=== PATIENT | male | born 1965 | race Caucasian/White ===

== ENCOUNTER 2017-11-02 23:20 | Observation (INO) | payer BC ==
[~2017-11-02] VITALS: Ht 170.2 cm; Wt 82.4 kg
[~2017-11-02 23:20] MED LIST: Monopril PO; NOHOMEMEDS; Norvasc PO; TRILIPIX135 MG PO; Zocor PO
[2017-11-02 23:58] LABS: HEMATOCRIT 45.6 % (38.0-50.0); MCH 28.9 PG (29.0-34.0); MCHC 35.1 G/DL (30.0-36.0); MCV 82.3 FL (86-99); PLATELET COUNT 235 K/uL (156-360); RBC DIS.WIDTH-CV 12.5 % (11.8-14.6); RBC DIS.WIDTH-SD 37.3 % (39-53); RED BLOOD COUNT 5.54 M/uL (4.00-5.50); WHITE BLOOD COUNT 6.6 K/uL (4.1-10.2)
[2017-11-03 00:10] LABS: CHLORIDE 104 mEq/L (99-109); POTASSIUM 3.2 mEq/L (3.7-5.4); SODIUM 139 mEq/L (136-147)
[2017-11-03 00:11] LABS: GLUCOSE 181 mg/dL (70-99)
[2017-11-03 00:15] LABS: CREATININE 1.1 mg/dL (0.6-1.3); GFR ESTIMATE (CALCULATED) > 59 mL/min/ (58.99-99999)
[2017-11-03 00:16] LABS: UREA NITROGEN (BUN) 18 mg/dL (9-23)
[2017-11-03 00:19] LABS: TROP-I INTERPRETATION NEGATIVE; TROPONIN-I 0.04 ng/mL (0.0-0.30)
[2017-11-03] MEDS ORDERED: TIROSINT100 MCG PO (00:41)
[2017-11-03] MEDS ORDERED: GLYXAMBI 10 MG1 EACH PO (00:42)
[2017-11-03] MEDS ORDERED: GLUCOPHAGE1000 MG PO (00:42)
[2017-11-03] MEDS ORDERED: LISINOPRIL10 MG PO (00:42)
[2017-11-03] MEDS ORDERED: ASPIRIN81 M2 PO (00:43)
[2017-11-03] MEDS ORDERED: NORVASC10 MG PO (01:36)
[2017-11-03] MEDS ORDERED: FISH OIL 1,0001 EAC7 PO (01:37)
[2017-11-03 03:27] VITALS: BP 133/86
[2017-11-03 06:40] LABS: HEMATOCRIT 43.4 % (38.0-50.0); HEMOGLOBIN 14.8 G/DL (12.5-16.6); MCH 28.7 PG (29.0-34.0); MCHC 34.1 G/DL (30.0-36.0); MCV 84.1 FL (86-99); PLATELET COUNT 221 K/uL (156-360); RBC DIS.WIDTH-CV 12.6 % (11.8-14.6); RBC DIS.WIDTH-SD 38.5 % (39-53); RED BLOOD COUNT 5.16 M/uL (4.00-5.50)
[2017-11-03 06:54] VITALS: BP 135/77
[2017-11-03 06:59] LABS: TROP-I INTERPRETATION NEGATIVE; TROPONIN-I < 0.01 ng/mL (0.0-0.30)
[2017-11-03 07:17] LABS: ALBUMIN 4.3 G/DL (3.2-4.8); ALKALINE PHOSPHATASE 54 IU/L (3-129); ALT (GPT) 27 IU/L (3-49); AST (GOT) 15 IU/L (2-34); CHLORIDE 107 MEQ/L (99-109); GFR ESTIMATE (CALCULATED) > 59 mL/min/ (58.99-99999); GLUCOSE 147 mg/dL (70-99); POTASSIUM 3.9 MEQ/L (3.7-5.4); SODIUM 139 MEQ/L (136-147); TOTAL BILIRUBIN 0.4 MG/DL (0.0-1.0); TOTAL PROTEIN 6.6 G/DL (6.4-8.3); UREA NITROGEN (BUN) 22 mg/dL (9-23)
[2017-11-03 12:22] VITALS: BP 116/75
[2017-11-03 12:34] LABS: TROP-I INTERPRETATION NEGATIVE; TROPONIN-I < 0.01 ng/mL (0.0-0.30)
[2017-11-03] MEDS ORDERED: NITROSTAT0.4 MG SL (12:58)
== END 2017-11-03 13:21 | disposition home or self-care (01) ==
LOC: EME 23:20 → EDOF 11-03 01:38 → 5WEST 11-03 01:38 → ENRESERV 11-03 01:40 → 5WEST 11-03 03:17
PROVIDERS: Internal Medicine
DX: R07.9 Chest pain, unspecified (principal); M79.602 Pain in left arm; E11.9 Type 2 diabetes mellitus without complications; I10 Essential (primary) hypertension; E78.5 Hyperlipidemia, unspecified; Z82.49 Family history of ischemic heart disease and other diseases of the circulatory system; E03.9 Hypothyroidism, unspecified; Z79.4 Long term (current) use of insulin; Z79.82 Long term (current) use of aspirin; Z87.891 Personal history of nicotine dependence; Z87.442 Personal history of urinary calculi
CPT/HCPCS: 71046; 80048; 80053; 82948; 84484; 85027; 93005; 99281; 99284; G0378